=== PATIENT | female | born 1995 | race African-American/Black ===

== ENCOUNTER 2018-08-16 23:44 | Emergency (ER) | payer OTHER ==
[~2018-08-16] VITALS: Ht 170.2 cm; Wt 86.6 kg
[2018-08-16 23:56] VITALS: Ht 170.2 cm; Wt 86.6 kg
[2018-08-17 01:18] VITALS: BP 106/77
== END 2018-08-17 01:18 | disposition home or self-care (01) ==
LOC: ED 23:44
DX: S83.91XA Sprain of unspecified site of right knee, initial encounter (principal); X50.3XXA Overexertion from repetitive movements, initial encounter; Y93.41 Activity, dancing; Y92.89 Other specified places as the place of occurrence of the external cause; Y99.8 Other external cause status
CPT/HCPCS: Q0092